=== PATIENT | female | born 1975 ===

== ENCOUNTER 2016-12-06 18:15 | Emergency (ER) | payer OTHER ==
[2016-12-06 18:34] VITALS: BMI 22.8
[2016-12-06 18:37] VITALS: BP 128/80; PULSE 68; RESP 18; TEMP 98.7; O2SAT 100
[2016-12-06] MEDS ORDERED: Dexamethasone 4 mg/1 ml IVP STA (19:19)
--- NOTE | 2016-12-06 19:24 | C.PDOC ---
History Of Present Illness 41 yr old female presents to the ER with complaints of right lower back pain for the past 1 week, which radiates down the right leg. Patient reports she has been trying OTC medicine with no relief. Denies trauma, chest pain, nausea, vomiting, abdominal pain, diarrhea, dysuria, bowel or bladder incontinence. Time Seen by Provider: 12/06/16 19:12 Chief Complaint (Nursing): Back Pain History Per: Patient History/Exam Limitations: no limitations Onset/Duration Of Symptoms: Days (1 week ) Past Medical History Reviewed: Historical Data, Nursing Documentation, Vital Signs Vital Signs: Last Vital Signs Temp 98.7 F 12/06/16 18:34 Pulse 68 12/06/16 18:34 Resp 18 12/06/16 18:34 BP 128/80 12/06/16 18:34 Pulse Ox 100 12/06/16 19:44 Family History: States: No Known Family Hx - Social History Hx Alcohol Use: Yes Hx Substance Use: No - Immunization History Hx Tetanus Toxoid Vaccination: No Hx Influenza Vaccination: No Hx Pneumococcal Vaccination: No Review Of Systems Except As Marked, All Systems Reviewed And Found Negative. Cardiovascular: Negative for: Chest Pain Gastrointestinal: Negative for: Nausea, Vomiting, Abdominal Pain, Diarrhea Genitourinary: Negative for: Dysuria, Incontinence Musculoskeletal: Positive for: Back Pain (Right lower back pain) Physical Exam - Physical Exam Appears: Non-toxic, No Acute Distress Skin: Warm, Dry, No Rash Head: Atraumatic, Normacephalic Oral Mucosa: Moist Chest: Symmetrical, No Tenderness Cardiovascular: Rhythm Regular, No Murmur Respiratory: Normal Breath Sounds, No Rales, No Rhonchi, No Stridor, No Wheezing Gastrointestinal/Abdominal: Normal Exam, Soft, No Tenderness, No Guarding, No Rebound Back: Other ((+) Right paralumbar tenderness) Extremity: Normal ROM, No Swelling Neurological/Psych: Oriented x3, Normal Speech, Normal Motor, Normal Sensation Gait: Steady ED Course And Treatment O2 Sat by Pulse Oximetry: 100 (RA ) Pulse Ox Interpretation: Normal Medical Decision Making Medical Decision Making: PLAN: * Flexeril PO * Toradol IM * Decadron IVP On re-exam, the patient reports improvement of symptoms. Lungs are CTA, heart is RRR, Abdomen is soft, non-tender and patient is tolerating PO well. Patient is ambulatory in the ED with steady gait. Follow up with the medical doctor within 1-2 days. Return if worsened. Disposition - Disposition Referrals: [facility] at [facility] [Outside] Disposition: HOME/ ROUTINE Disposition Time: 19:41 Condition: GOOD Additional Instructions: Follow up with the medical doctor within 1-2 days. Return if worsened. Prescriptions: Cyclobenzaprine [Flexeril] 5 mg PO TID #21 tab Naproxen [Naprosyn] 500 mg PO BID #20 tab predniSONE [Prednisone] 10 mg PO BID #10 tab Instructions: Sciatica (ED) Forms: [email or web address] (Faroese) Print Language: UPPER SORBIAN - Clinical Impression Clinical Impression: Sciatica - PA / CLINICAL SYSTEMS EDUCATOR / Resident Statement MD/DO has reviewed & agrees with the documentation as recorded. - Scribe Statement The provider has reviewed the documentation as recorded by the Scribe Kelley Emery All medical record entries made by the Scribe were at my direction and personally dictated by me. I have reviewed the chart and agree that the record accurately reflects my personal performance of the history, physical exam, medical decision making, and the department course for this patient. I have also personally directed, reviewed, and agree with the discharge instructions and disposition.
[2016-12-06] MEDS ORDERED: Dexamethasone 4 mg/1 ml ONE (19:26)
== END 2016-12-06 19:54 | disposition home or self-care (01) ==
LOC: C.ER 18:15
DX: M54.41 Lumbago with sciatica, right side (principal)
CPT/HCPCS: 96372; 96374; 99283; J1100; J1885